=== PATIENT | female | born 1985 | race Caucasian/White ===

== ENCOUNTER 2017-10-03 07:20 | Observation (INO) | payer OTHER ==
[2017-10-03 07:33] VITALS: BP 119/74
[2017-10-03] MEDS ORDERED: PREN1TAB80 PO (07:33)
== END 2017-10-03 09:40 | disposition home or self-care (01) ==
LOC: EDBD → 4S 07:20 → UNDOADMIN 07:20 → PREOBSVTOIN 10-12 07:32
PROVIDERS: ADMIT Specialist; ATTEND Specialist
DX: O62.9 Abnormality of forces of labor, unspecified (principal); O42.92 Full-term premature rupture of membranes, unspecified as to length of time between rupture and onset of labor; O46.93 Antepartum hemorrhage, unspecified, third trimester; O48.0 Post-term pregnancy; O26.893 Other specified pregnancy related conditions, third trimester; R10.30 Lower abdominal pain, unspecified; Z3A.40 40 weeks gestation of pregnancy
CPT/HCPCS: 36415; 59025; 89060; G0378

== ENCOUNTER 2017-10-05 00:29 | Observation (INO) | payer OTHER ==
[~2017-10-05] VITALS: Ht 162.6 cm; Wt 83.0 kg
[~2017-10-05 00:29] MED LIST: PREN1TAB80 PO
[2017-10-05 01:35] VITALS: BP 115/70
== END 2017-10-05 02:30 | disposition home or self-care (01) ==
LOC: 4S 00:29 → EDBD 00:29
PROVIDERS: ADMIT Specialist; ATTEND Specialist
DX: O62.9 Abnormality of forces of labor, unspecified (principal); O26.893 Other specified pregnancy related conditions, third trimester; R10.30 Lower abdominal pain, unspecified; O48.0 Post-term pregnancy; Z3A.40 40 weeks gestation of pregnancy

== ENCOUNTER 2017-10-05 04:59 | Inpatient (IN) | payer OTHER ==
[~2017-10-05] VITALS: Ht 162 cm; Wt 83.0 kg
[2017-10-05] MEDS ORDERED: OXYTOCIN 30 UNITS/LACT RINGERS 500 ML IV ONE (05:18)
[2017-10-05] MEDS ORDERED: RINGERS SOLUTION,LACTATED 1,000 ML IV ONE ×2 (05:18→17:10)
[2017-10-05] MEDS ORDERED: METOCLOPRAMIDE HCL 5 MG/ML 2 ML VIAL IVP PRN (05:30)
[2017-10-05] MEDS ORDERED: FentaNYL CITRATE-PF 100 MCG/2 ML VIAL IVP PRN ×4 (05:30→19:15)
[2017-10-05] MEDS ORDERED: LIDOCAINE HCL/PF 1% 30 ML VIAL INJ PRN (05:30)
[2017-10-05] MEDS ORDERED: AMPICILLIN SODIUM 2 GM/NS 100 ML IV ONE (05:30)
[2017-10-05] MEDS ORDERED: CITRIC ACID/SODIUM CITRATE 30 ML SOLUTION UDCUP PO PRN (05:30)
[2017-10-05] MEDS ORDERED: ROPIVACAINE HCL/PF 0.2% 100 ML ED ONE ×2 (05:37→12:52)
[2017-10-05 05:48] LABS: BASOPHILS % (AUTO) 0.4 % (0.0-2.0); EOSINOPHILS % (AUTO) 0.1 % (1.0-6.0); HEMATOCRIT 37.1 % (36-46); HEMOGLOBIN 13.1 g/dL (12.0-16.0); LYMPHOCYTES # (AUTO) 1.5 K/uL (1.0-4.8); LYMPHOCYTES % (AUTO) 9.4 % (22.0-44.0); MEAN CORPUSCULAR HGB CONC 35.2 G/dL (31.0-37.0); MEAN CORPUSCULAR VOLUME 94 fL (80-100); MONOCYTES % (AUTO) 6.1 % (2.0-9.0); NEUTROPHILS # (AUTO) 13.2 K/uL (1.8-7.7); PLATELET COUNT (AUTO)-OB 160 K/uL (150-450); RED BLOOD CELL COUNT(AUTO) 3.96 MIL/uL (4.00-5.20); RED CELL DISTRIBUTION WIDTH 13.7 % (11.5-14.5)
[2017-10-05] MEDS: RINGERS SOLUTION,LACTATED 1,000 ML IV SCH ×4 (05:52→20:05)
[2017-10-05] MEDS ORDERED: [UNRECOGNIZED DRUG - OTHER] ED PRN (06:40)
[2017-10-05] MEDS ORDERED: FENTANYL CITRATE ED PRN (06:40)
[2017-10-05] MEDS ORDERED: BUPIVACAINE HCL ED PRN (06:40)
[2017-10-05 06:44] VITALS: BP 134/90
[2017-10-05] MEDS ORDERED: DiphenhydrAMINE HCL 50 MG/ML VIAL IVP PRN ×3 (06:45→19:15)
[2017-10-05] MEDS ORDERED: ONDANSETRON HCL 4 MG/2 ML VIAL IVP PRN ×3 (06:45→19:15)
[2017-10-05] MEDS ORDERED: OXYTOCIN 30 UNITS/LACT RINGERS 500 ML IV PRN (07:13)
[2017-10-05] MEDS ORDERED: AMPICILLIN SODIUM 1 GM/NS 50 ML IV SCH (09:30)
[2017-10-05] MEDS ORDERED: 0.9% SODIUM CHLORIDE 10 ML VIAL IVP ONE (12:00)
[2017-10-05] MEDS ORDERED: OXYTOCIN 10 UNITS/ML VIAL IM ONE (12:00)
[2017-10-05] MEDS ORDERED: ONDANSETRON HCL 4 MG/2 ML VIAL IVP ONE (12:00)
[2017-10-05] MEDS ORDERED: EPHEDrine SULFATE 50 MG/ML VIAL IM ONE (12:00)
[2017-10-05] MEDS ORDERED: KETOROLAC TROMETHAMINE 60 MG/2 ML VIAL IM ONE (12:00)
[2017-10-05] MEDS ORDERED: DEXAMETHASONE SOD PHOS 4 MG/ML VIAL IVP ONE (12:00)
[2017-10-05] MEDS ORDERED: FentaNYL CITRATE-PF 100 MCG/2 ML VIAL ONE (17:10)
[2017-10-05] MEDS ORDERED: MORPHINE SULFATE/PF 0.5 MG/ML 10 ML AMP ONE (17:10)
[2017-10-05] MEDS ORDERED: CeFAZolin 2 GM/DEXTROSE 50 ML IV ONE (17:10)
[2017-10-05] MEDS ORDERED: LIDOCAINE HCL 2%/EPI 1:200,000/PF 20 ML VIAL ONE (17:11)
[2017-10-05] MEDS ORDERED: LANOLIN 7 GM OINTMENT TP PRN (19:00)
[2017-10-05] MEDS ORDERED: MEASLES/MUMPS/RUBELLA VACCINE, LIVE 0.5 ML/VIAL SQ ONE (19:00)
[2017-10-05] MEDS ORDERED: NALOXONE HCL 0.4 MG/ML VIAL IVP PRN (19:15)
[2017-10-05] MEDS ORDERED: MEPERIDINE-PF 25 MG/ML SYRINGE IVP PRN (19:15)
[2017-10-05] MEDS ORDERED: NALBUPHINE HCL 10 MG/ML VIAL IVP PRN ×3 (19:15)
[2017-10-05] MEDS ORDERED: ACETAMINOPHEN 1000 MG/ISO-OSM 100 ML IV PRN (19:15)
[2017-10-05] MEDS ORDERED: ACETAMINOPHEN 1000 MG/ISO-OSM 100 ML IV ONE ×2 (19:15→20:00)
[2017-10-05] MEDS ORDERED: OXYGEN THERAPY IH SCH ×3 (20:00)
[2017-10-05] MEDS: CeFAZolin 1 GM/DEXTROSE 50 ML IV SCH (20:14)
[2017-10-06] MEDS: KETOROLAC TROMETHAMINE 30 MG/ML VIAL IVP SCH ×2 (01:11→07:02)
[2017-10-06] MEDS: RINGERS SOLUTION,LACTATED 1,000 ML IV SCH ×2 (02:21→10:30)
[2017-10-06] MEDS: CeFAZolin 1 GM/DEXTROSE 50 ML IV SCH (03:47)
[2017-10-06 06:17] LABS: BASOPHILS % (AUTO) 0.1 % (0.0-2.0); EOSINOPHILS % (AUTO) 0.1 % (1.0-6.0); HEMATOCRIT 34.4 % (36-46); LYMPHOCYTES # (AUTO) 1.1 K/uL (1.0-4.8); LYMPHOCYTES % (AUTO) 5.5 % (22.0-44.0); MEAN CORPUSCULAR HEMOGLOBIN 33.2 pg (26.0-34.0); MEAN CORPUSCULAR HGB CONC 34.9 G/dL (31.0-37.0); MEAN CORPUSCULAR VOLUME 95 fL (80-100); MONOCYTES # (AUTO) 1.1 K/uL (0.1-1.0); MONOCYTES % (AUTO) 5.9 % (2.0-9.0); NEUTROPHILS # (AUTO) 16.9 K/uL (1.8-7.7); PLATELET COUNT (AUTO)-OB 142 K/uL (150-450); RED BLOOD CELL COUNT(AUTO) 3.61 MIL/uL (4.00-5.20); RED CELL DISTRIBUTION WIDTH 13.7 % (11.5-14.5)
[2017-10-06 06:50] LABS: NEUTROPHILS % (AUTO) 88.4 % (40.0-70.0)
[2017-10-06] MEDS ORDERED: HYDROCODONE/ACETAMINOPHEN 5-325 MG TABLET PO PRN (08:00)
[2017-10-06] MEDS: MAGNESIUM HYDROXIDE SUSPENSION 30 ML UDCUP PO SCH ×2 (09:00→20:23)
[2017-10-06] MEDS: SENNA/DOCUSATE SODIUM 187-50 MG TABLET PO SCH ×2 (09:00→20:23)
[2017-10-06] MEDS ORDERED: BUPIVACAINE HCL/PF 0.5% 25 ML, FentaNYL CITRATE PF 200 MCG in BUPIVACAINE HCL 0.125%/NS... ED PRN (09:57)
[2017-10-06] MEDS ORDERED: DiphenhydrAMINE HCL 50 MG/ML VIAL IVP PRN (10:00)
[2017-10-06] MEDS ORDERED: ONDANSETRON HCL 4 MG/2 ML VIAL IVP PRN (10:00)
[2017-10-06] MEDS: IBUPROFEN 800 MG TABLET PO SCH ×3 (12:00→20:24)
[2017-10-06] MEDS: HYDROCODONE/ACETAMINOPHEN 5-325 MG TABLET PO PRN (18:34)
[2017-10-07] MEDS: HYDROCODONE/ACETAMINOPHEN 5-325 MG TABLET PO PRN ×2 (01:04→06:42)
[2017-10-07] MEDS: SENNA/DOCUSATE SODIUM 187-50 MG TABLET PO SCH (08:30)
[2017-10-07] MEDS: IBUPROFEN 800 MG TABLET PO SCH ×2 (08:30→14:10)
[2017-10-07] MEDS: MAGNESIUM HYDROXIDE SUSPENSION 30 ML UDCUP PO SCH (08:30)
[2017-10-07] MEDS ORDERED: IBUP-2071 PO ×3 (10:18→10:21)
[2017-10-07] MEDS ORDERED: HYDR-309 PO (10:24)
== END 2017-10-07 18:10 | disposition home or self-care (01) | DRG 766 ==
LOC: 4S 04:59 → OBSVTOIN 04:59
PROVIDERS: ADMIT Specialist; ATTEND Specialist
PROC: 10D00Z1 Extraction of Products of Conception, Low, Open Approach (ICD-10-PCS; principal; 2017-10-05)
DX: O69.81X0 Labor and delivery complicated by cord around neck, without compression, not applicable or unspecified (principal); O32.4XX0 Maternal care for high head at term, not applicable or unspecified; O77.0 Labor and delivery complicated by meconium in amniotic fluid; Z37.0 Single live birth; Z3A.40 40 weeks gestation of pregnancy
CPT/HCPCS: 86850; 86900; 86901; J0131; J0690; J1100; J1885; J2274; J2405; J2590; J2765; J2795; J3010; J3490; J7120